=== PATIENT | male | born 1990 | race Caucasian/White ===

== ENCOUNTER 2016-12-25 23:08 | Emergency (ER) | payer SELFPAY ==
[~2016-12-25] VITALS: Ht 172.7 cm; Wt 68.1 kg
[~2016-12-25 23:08] MED LIST: ASCORBIC ACID500 M3 PO; GUIATUSS AC SY120 M1 PO; MUCINEX FAST M PO; MULTIPLE VITAM1 EAC1 PO; PROAIR HFA8.5 GM IH; PROAIR RESPICL90 MCG IH; TAMIFLU75 MG PO; VENTOLIN HFA18 GM IH
[2016-12-26] MEDS ORDERED: PERCOCET 5/31 TABLET PO (01:32)
[2016-12-26 02:10] VITALS: BP 138/87
== END 2016-12-26 02:46 | disposition home or self-care (01) ==
LOC: EME 23:08
PROC: 0RSKXZZ Reposition Left Shoulder Joint, External Approach (ICD-10-PCS; principal; 2016-12-25)
DX: S43.015A Anterior dislocation of left humerus, initial encounter (principal); S42.252A Displaced fracture of greater tuberosity of left humerus, initial encounter for closed fracture; Y09 Assault by unspecified means; Y07.410 Brother, perpetrator of maltreatment and neglect; F17.200 Nicotine dependence, unspecified, uncomplicated
CPT/HCPCS: 73030; 99281; 99284; J2270; J2405; J3010; J7030; S0020

== ENCOUNTER 2016-12-30 08:16 | Emergency (ER) | payer SELFPAY ==
[~2016-12-30] VITALS: Ht 175.3 cm; Wt 70.7 kg
[~2016-12-30 08:16] MED LIST changes: +PERCOCET 5/31 TABLET PO
[2016-12-30] MEDS ORDERED: NORCO 5/3251 TABLET PO (09:52)
[2016-12-30 10:00] VITALS: BP 141/84
== END 2016-12-30 10:02 | disposition home or self-care (01) ==
LOC: EME 08:16
DX: S42.92XD Fracture of left shoulder girdle, part unspecified, subsequent encounter for fracture with routine healing (principal); M25.512 Pain in left shoulder
CPT/HCPCS: 73030; 99281; 99283

== ENCOUNTER 2017-02-11 10:06 | Emergency (ER) | payer SELFPAY ==
[~2017-02-11] VITALS: Ht 172.7 cm; Wt 69.9 kg
[~2017-02-11 10:06] MED LIST changes: +NORCO 5/3251 TABLET PO
[2017-02-11] MEDS ORDERED: CLONIDINE HCL0.1 MG PO (11:57)
[2017-02-11] MEDS ORDERED: PROMETHAZINE HC25 M1 PO (11:57)
[2017-02-11] MEDS ORDERED: TRAZODONE HCL50 MG PO (11:57)
[2017-02-11 12:08] LABS: HEMATOCRIT 44.3 % (38.0-50.0); MCH 30.7 PG (29.0-34.0); MCHC 33.9 G/DL (30.0-36.0); MCV 90.6 FL (86-99); MEAN PLAT.VOLUME 11.5 uM^3 (9.0-12.4); PLATELET COUNT 216 K/uL (156-360); RBC DIS.WIDTH-CV 12.3 % (11.8-14.6); RBC DIS.WIDTH-SD 40.7 % (39-53); RED BLOOD COUNT 4.89 M/uL (4.00-5.50)
[2017-02-11 12:09] VITALS: BP 114/66
[2017-02-11 12:16] LABS: CHLORIDE 105 mEq/L (99-109); POTASSIUM 4.6 mEq/L (3.7-5.4); SODIUM 140 mEq/L (136-147)
[2017-02-11 12:19] LABS: GLUCOSE 116 mg/dL (70-99)
[2017-02-11 12:20] LABS: ANION GAP 11 MEQ/L (2-14); TOTAL BILIRUBIN 0.3 mg/dL (0.0-1.0)
[2017-02-11 12:22] LABS: ALKALINE PHOSPHATASE 84 IU/L (3-129); GFR ESTIMATE (CALCULATED) > 59 mL/min/; SERUM ETHYL ALCOHOL < 10 mg/dL
[2017-02-11 12:23] LABS: UREA NITROGEN (BUN) 9 mg/dL (9-23)
== END 2017-02-11 12:10 | disposition home or self-care (01) ==
LOC: EME 10:06
PROVIDERS: Emergency Medicine
DX: F11.23 Opioid dependence with withdrawal (principal); F17.200 Nicotine dependence, unspecified, uncomplicated
CPT/HCPCS: 80053; 81003; 85027; 90839; 99281; 99283; G0480